=== PATIENT | male | born 1970 | race Caucasian/White ===

== ENCOUNTER 2023-05-12 08:46 | Day surgery (SDC) | payer OTHER, SELFPAY ==
[2023-05-12] VITALS (8 sets, daily range): BP systolic 133–150; BP diastolic 89–96; PULSE 74–100; RESP 15–20; TEMP 35.9–36.3; O2SAT 92–100
--- NOTE | 2023-05-12 | PATH_ITS ---
[facility] Accession Number: [id number] No. of containers..01 Tissue . 01 Material submitted: . bone - RIGHT 5TH METATARSAL HEAD . 01 Diagnosis: Right Fifth Metatarsal Head, Excision: Osteo-cartilaginous fragment with degenerative changes, please see comment. Negative for neoplasia. MRV 05/22/2023 1613 Local . 01 Comment: The findings may represent exostosis, in the appropriate clinical and radiologic context. . As part of ongoing chief quality officer, this case is also reviewed by Dr. Stephanie Magallon, who agrees with the interpretation. . 01 Electronically signed: . Sarah Man MD, Pathologist NPI- [id number] . 01 Gross description: . The specimen is received in formalin labeled with the patient's name, , and right fifth metatarsal head bone, consists of a olea, hard fragment of osseous tissue with a slightly ragged articular surface and a small amount of soft tissue. The specimen measures 1.7 x 1.5 x 1.4 cm. The margin is inked blue. Sectioning reveals a yellow-olea trabecular cut surface with no lesion or discoloration, and is difficult to section with a scalpel. A account services representative section is submitted in cassette A1 following decalcification. ([id number]) /MRV 05/13/2023 1451 Local . 01 Pathologist provided ICD-10: M25.774 . 01 CPT . 023516, [id number] Specimen Comment: A courtesy copy of this report has been sent to [facility] Performed at: 01 [facility] [address] [place] [address] [address] [facility], [place], [place] [id number] MD Herman Guevara MD Phone: [phone]
--- NOTE | 2023-05-12 | DI.RAD.S_ITS ---
PROCEDURE: XR FOOT RT MIN 3V INDICATIONS: POST OP RIGHT FOOT TECHNIQUE: 3 views of the foot were acquired. COMPARISON: [facility], CR, XR FOOT 3 VIEWS WEIGHT BEARING RIGHT, 04/22/2023, 11:27. FINDINGS: Bones: Interval amputation of the 5th metatarsal shaft to the metatarsal head. Soft tissues: No tibiotalar joint effusion. Achilles tendon appears normal. IMPRESSION: Interval amputation of the 5th metatarsal, without complication. Dictated by: Mickey Barreto M.D. on 05/12/2023 at 15:55 Approved by: Mickey Barreto M.D. on 05/12/2023 at 15:55
--- NOTE | 2023-05-12 09:02 | PM.HP.1 ---
History of Present Illness History of Present Illness Date Patient Seen: 05/12/23 Time Patient Seen: 09:03 Chief complaint: Right foot osyteophyte and chronic ulcer Narrative: 53 year old male with diabetes and peripheral neuropathy was [facility] chronic ulcer to the right foot for more than a year. It began when he was living in [place]. He had been to the ED and admitted to the hospital on multiple occasions for treatment of secondary infections without success. Patient needs to get back on his foot for work at [email or web address]. Patient denies n/v/f/c/sob/cp. [facility] Medical History (Updated 05/11/23 @ 08:11 by Nelda Velasquez RN) Deaf Review of Systems Review of Systems Narrative: Negative except as mentioned in HPI. Exam Skin Other: Ulcer down to muscle and bone at the right plantar fifth metatarsal head with small serosanguinous exudates. 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 Extrem Other: Palpable PT and DP pulses on both feet. Pedal hair present on both feet. Forefoot varus on right foot with bony eminence. No pain on palpation to ulcer. Assessment & Plan Assessment & Plan narrative: 1. Right foot chronic diabetic ulcer. 2. Right foot osteophyte. 3. Right foot acquired deformity. 4. DM II with peripheral neuropathy. Discussed treatment options with patient in agreement for surgical intervention as the most definitive measure. A dorsal incision will be made for removal of fifth metatarsal head, and the removed bone will lessen the deformity contributing to ulceration, which will be sent to Microbiology and Pathology for evaluation. In addition, the plantar ulcer will be sharply debrided in sterile setting along with application of skin substitute in the presence of extensive delay in would healing along with scar formation. Risks and benefits of the surgery reviewed with all questions answered to satisfaction and no guarantees made.
[2023-05-12] MEDS: LACTATED RINGERS 1,000 ML 42 ML IV ×2 (10:32→12:39)
[2023-05-12] MEDS: CEFAZOLIN 2 GM/100 ML PREMIX 100 ML IV (11:30)
--- NOTE | 2023-05-12 11:44 | SUR.OPER ---
Supine on padded OR bed, head on pillow, arms secured on padded arm boards at <90 degrees abduction, legs uncrossed, safety belt at thigh, tape over blanket over lower legs. Bump placed under right hip and right calf to elevate foot. Tourniquet placed on right ankle.
[2023-05-12] MEDS: LIDOCAINE 1% 20 ML INJ (11:53)
--- NOTE | 2023-05-12 13:36 | SUR.PHASEI ---
lehr cutter used throughout pacu stay
--- NOTE | 2023-05-13 10:04 | PM.OP.1 ---
Operative Date/Time/Diagnoses Date of procedure: 05/12/23 Pre-op diagnosis: 1. Right foot osteophyte 2. Right foot chronic diabetic ulcer Post-op diagnosis: same Procedure & Clinicians Procedure: 1. Right foot fifth metatarsal head excision 2. Right foot ulcer sharp debridement down to muscle < 25 sq cm. 3. Right foot skin substitute application Same procedure as scheduled: Yes Indications: 1. Right foot hypertrophic bone with cystic changes of unknown etiology to fifth metatarsal head with varus deformity and tailor's bunion. 2. Right foot non-healing ulcer. Surgeon: Mark Leos Anesthesia Type: MAC +/- Operative Notes Findings: Extensive scar and devitalized tissues and enlarged fifth metatarsal head. Closure Type: primary Specimen(s): other (Fifth metatarsal bone to Microbiology and Pathology. Deep wound culture to Microbiology. ) Applied: graft(s) (Stravix 2 x 4 cm) Estimated Blood Loss (mL): 25 Tourniquet time (min): 25 Procedure in detail: The patient was identified and taken into the operating Room via gurney and transferred onto the operating room table. The patient was secured in the supine position for the entirety of the procedure. Monitored Anesthesia Care was administered. An ankle tourniquet was applied to the right side. The right foot was prepped and draped in the usual sterile manner followed by a timeout with the surgical team all in agreement. The right lower extremity was then exsanguinated with an Esmarch followed by inflation of the ankle tourniquet to 250 mmHg. Attention was then directed to right lateral foot. A dorsal linear incision was made using #15 scalpel along the fifth ray, and dissection was carried out from skin down to the level of the bone with respect to layers. Extensive scar and moderate amount of devitalized tissues were sharpy removed. The fifth metatarsophalangeal joint was identified and exposed, and a sagittal saw on power was used to excise the fifth metatarsal head which was sent to both Microbiology and Pathology for evaluation. Attention was then directed to the plantar aspect of right lateral forefoot, where a full-thickness ulcer that tracks towards the lateral compartment was present. Sharp, excisional debridement was performed using #15 scalpel down to the level of muscle, < 25 sqcm. Extensive scar and devitalized tissues were encountered. A deep wound culture was taken as well. Hemostasis was achieved with pressure. The surgical sites were irrigated copiously using 2 L of saline under pressurized bag. Tourniquet was released at 25 minutes, with immediate hyperemia appreciated. Decision was made to apply Stravix 2 x 4 cm graft to the open ulcer, which was prepared using manufacture instruction and anchored to the ulcer using ale and 3-0 vicryl sutures. The excess graft was anchored to the joint as interpositional arthroplasty with 3-0 vicryl sutures as well. The dorsal incision was closed using 3-0 prolene sutures. In addition, 10 mL of 1% Lidocaine plain was injected into the right foot. The surgical sites were dressed using iodine soaked Adaptic, gauze, abdominal pad, and Kerlix. A posterior splint was applied over cast padding and under elastic wraps. Post-operative Condition: stable Disposition: same day surgery Plan for aftercare: NWB to surgical limb. Eleavtive above heart. Keep dressing clean, dry, and intact. Take medications as directed. RTC for post-op care as scheduled.
== END 2023-05-12 14:00 | disposition home or self-care (01) ==
PROVIDERS: Referring Provider Podiatrist Foot & Ankle Surgery; Visit Provider Podiatrist Foot & Ankle Surgery
PROC: (CPT 28113; principal; 2023-05-12 11:00)
DX: M25.774 Osteophyte, right foot (principal); E11.621 Type 2 diabetes mellitus with foot ulcer; L97.515 Non-pressure chronic ulcer of other part of right foot with muscle involvement without evidence of necrosis; E11.42 Type 2 diabetes mellitus with diabetic polyneuropathy
CPT/HCPCS: 28113; 11043; 73630; 82962; 87070; 87075; 87147; 87205; J0690; J2250; J2704; J3010